=== PATIENT | female | born 1965 | race Caucasian/White ===

== ENCOUNTER 2017-10-13 09:19 | Day surgery (SDC) | payer MEDICAID ==
[~2017-10-13 09:19] MED LIST: Acetaminophen-Codeine 300/30 mg Tab PO PRN; Dextrose 5%/0.45% NS 1,000 ML IV SCH
[2017-10-13] MEDS ORDERED: Lactated Ringer's 1,000 ML IV ONE ×2 (11:55→13:30)
[2017-10-13] MEDS ORDERED: ceFAZolin IV 1 gm in Dextrose 1 GM/50 ML BAG IVPB ONE (12:00)
[2017-10-13] MEDS ORDERED: Lidocaine 2% w Epi 1:100,000 Inj IJ ONE (12:00)
[2017-10-13] MEDS ORDERED: EPINEPHrine 1:1000 Nasal Sol(30mL) ONE (12:01)
[2017-10-13] MEDS ORDERED: Oxymetazoline 0.05% Nasal Spray (30 ml) NS ONE (12:01)
[2017-10-13] MEDS ORDERED: Propofol 10 mg/ml Inj (20 ML) ONE (12:06)
[2017-10-13] MEDS ORDERED: Lidocaine Hydrochloride 5 ML INJ ONE (12:06)
[2017-10-13] MEDS ORDERED: Midazolam 2 MG/2 ML VIAL ONE (12:07)
[2017-10-13] MEDS ORDERED: Succinylcholine Chloride 20 mg/ml Syr (5 ml) IV ONE (12:10)
[2017-10-13] MEDS ORDERED: Lactated Ringer's 1,000 ML IV SCH (12:45)
[2017-10-13] MEDS: HYDROmorphone 0.5 mg/0.5 ml ISec IVP PRN ×2 (12:50→13:22)
--- NOTE | 2017-10-13 14:02 | OP ---
PROCEDURE DATE: 10/13/2017 PREOPERATIVE DIAGNOSIS: Nasopharyngeal mass. POSTOPERATIVE DIAGNOSIS: Nasopharyngeal mass. PROCEDURE: Nasopharyngeal mass biopsy. SIGNIFICANT FINDINGS: Nasopharyngeal mass. DESCRIPTION OF PROCEDURE: The patient was brought into the room, placed in supine position. Anesthesia was initiated through ET tube. The patient was draped in the usual manner. Adrenaline-soaked pledgets were inserted into the nasal cavity that remained there for at least 5 minutes and removed. A 0-degree scope was inserted into the right nasal cavity passed to the nasopharynx. Nasopharyngeal mass was noted. Multiple biopsies were taken. Bleeding was controlled using suction cautery. The scope was removed. The patient was taken off the anesthesia and taken to the recovery room in stable manner. Severiano Louis MD MTDElian
[2017-10-13 15:06] VITALS: RESP 18
[2017-10-13 15:32] VITALS: BP 112/70; PULSE 82; TEMP 98; O2SAT 100
== END 2017-10-13 16:46 | disposition home or self-care (01) ==
LOC: C.SDS 09:19
PROVIDERS: ATTEND Otolaryngology
DX: C11.0 Malignant neoplasm of superior wall of nasopharynx (principal)
CPT/HCPCS: 42999; 88307; 88342; J0690; J1170; J2250; J2704; J3010; J7030; J7120